=== PATIENT | female | born 2000 | race Caucasian/White ===

== ENCOUNTER 2025-04-29 08:44 | Emergency (ER) | payer OTHER, SELFPAY ==
[2025-04-29 08:44] VITALS: BP 134/97; PULSE 116; RESP 20; TEMP 37.1; O2SAT 100
[2025-04-29 09:21] LABS: EDCOVIDSCREEN Negative (Negative); EDSTREPNEGPOS1 Negative (Negative)
--- NOTE | 2025-04-29 09:43 | ED_ITS ---
HPI - URI/Sore Throat General Chief Complaint: Upper Respiratory Infection Stated Complaint: Swollen Tonsil Time Seen by Provider: 04/29/25 09:30 Source: patient and RN notes reviewed Mode of arrival: ambulatory Limitations: no limitations History of Present Illness HPI Narrative: 25-year-old female presents to the [facility] complaining of sore throat and swollen tonsils for the last 3 weeks. Patient says her right tonsils are swollen than her left. Patient denies any difficulty swallowing, excessive drooling, locked jaw, difficulty breathing, fevers, body aches and chills, upper respiratory symptoms, cough, or any other symptoms. Patient was swab 3 weeks ago for strep, mono, viral illnesses and said they were negative it was treated with amoxicillin and got somewhat better. His other symptoms got somewhat better however they are getting worse now. Patient denies any significant past medical history. Related Data Allergies Allergy/AdvReac Type Severity Reaction Status Date / Time No Known Allergies Allergy Mild Unverified 11/04/24 08:31 Review of Systems Review of Systems: CONSTITUTIONAL: Denies fever, chills, or sweats. EYES: Denies visual changes, redness, or discharge. ENT: Denies rhinorrhea, congestion, excessive drooling, trismus, dysphagia or otalgia. Positive for sore throat. CARDIOVASCULAR: Denies chest pain, palpitations, or edema. RESPIRATORY: Denies cough or dyspnea. GASTROINTESTINAL: Denies abdominal pain, nausea, vomiting, or diarrhea. GENITOURINARY: Denies dysuria or hematuria. SKIN: Denies rash or itching. MUSCULOSKELETAL: Denies back pain, joint pain, or myalgia. NEUROLOGIC: Denies headache, numbness, or weakness. PSYCHIATRIC: Denies anxiety or depression. All other systems reviewed are negative, except as documented in HPI. [facility] Family History Family History Mother Thyroid disorder Social History Social History Smoking status: Never smoker Alcohol intake: current Drinks per week: 4 Alcohol use details: 1-4 per week Substance use: never Do You Feel Safe in your Home?: Yes Lack of Transportation: No Lack of Food: Never True Current Housing: I Have Housing Concerned About Future Housing: No Difficulty Paying Gas/Electric Bills: No Difficulty Paying for Meds: No Currently Unemployed: No Education: Bachelor's Degree Difficulty w/ Childcare or Family Care: No Living arrangements: with roommate(s) Occupation/Education: student 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 There is no relevant family history pertinent to the patient complaint. Exam Narrative: GENERAL: This is a well-nourished, well-developed adult, in no apparent distress. They are non ill-appearing, nontoxic appearing. HEAD: normocephalic, atraumatic. EYES: Sclera clear/white. Conjunctiva normal. Vision is grossly intact. Extraocular movements intact EARS: External ears normal, auditory canals clear and without drainage, TMs normal without perforation. Hearing grossly intact. NOSE: External nose normal with no obvious nasal discharge, nasal turbinates without redness, no rhinorrhea. THROAT: Mucous membranes moist, posterior pharynx clear, without erythema or swelling. Tonsils erythematous 3+, right tonsil with exudate. Uvula midline. NECK: Neck supple, mild cervical lymphadenopathy, masses or thyromegaly. CARDIOVASCULAR: Regular rate and rhythm without murmurs, gallops, or rubs. RESPIRATORY: Clear to auscultation. Breath sounds equal bilaterally. No wheezes, rales, or rhonchi. SKIN: warm, Dry, intact with no suspicious lesions or rash, good texture and turgor. NEURO: awake, alert, and oriented to person, place and time. There were no obvious focal neurologic abnormalities. EXTREMITIES: No joint tenderness, effusion, or edema noted. BACK: Nontender without deformity. No CVA tenderness. Course Course Emergency Course: Portions of this record may have been created with voice recognition software Level of Care: Express Care Visit Vital Signs Vital signs: Vital Signs Temperature 98.7 F 04/29/25 08:44 Pulse Rate 116 H 04/29/25 08:44 Respiratory Rate 20 04/29/25 08:44 Blood Pressure 134/97 H 04/29/25 08:44 Pulse Oximetry 100 04/29/25 08:44 Oxygen Delivery Room Air 04/29/25 08:44 Temperature 98.7 F 08/05/25 08:44 Pulse Rate 116 H 04/29/25 08:44 Respiratory Rate 20 04/29/25 08:44 Blood Pressure 134/97 H 04/29/25 08:44 Pulse Oximetry 100 04/29/25 08:44 Oxygen Delivery Room Air 04/29/25 08:44 Reviewed MDM - URI/Sore Throat MDM Narrative Medical decision making narrative: Rapid strep negative, negative COVID in flu. Throat culture pending. Given patient's persistent symptoms will go ahead and treat her with Augmentin for 14 days along with short course of prednisone help with swelling. No evidence of peritonsillar abscess. Discussed physical exam findings. Advised supportive measures and signs/symptoms to go to the ER. Pt is appropriate for outpt treatment and f/u. Differential Diagnosis Differential diagnosis: Likely upper respiratory infection, pharyngitis and other (Tonsillitis, peritonsillar abscess, tonsillar cellulitis) Lab Data Attestation: I reviewed the patient's lab results. Labs: Lab Results 04/29/25 Range/Units 09:19 POC SARS CoV-2 Ag Negative (Negative) POC Grp A Strep Screen Negative (Negative) Critical Care Time Critical Care Time Critical Care Time: No Discharge Plan Discharge Clinical Impression: Acute tonsillitis Qualifiers: Pharyngitis/tonsillitis etiology: unspecified etiology Qualified Code(s): J03.90 - Acute tonsillitis, unspecified Patient Disposition: Home Condition: Stable Instructions: Antibiotic Form, Tonsillitis (ED) Additional Instructions: Your COVID, flu, strep are negative today. A throat culture will be sent off and if his positive for strep you will be contacted. Take the Augmentin as directed. Take the prednisone as directed, take in the morning, take with food. Follow-up with PCP in 3-5 days. You may take Tylenol or ibuprofen as needed for pain or fevers. Follow the instructions on the bottle. He developed difficulty swallowing, locked jaw, excessive drooling, your uvula is not midline, worsening says this, a serious concerns please go to the ER immediately. Patient Language: Belarusian Prescriptions: New prednisone 20 mg tablet 40 mg PO DAILY 5 Days Qty: 10 0RF amoxicillin-pot clavulanate 875-125 mg tablet 1 tablet PO Q12H 14 Days Qty: 28 0RF No Action Slynd 4 mg (28) tablet 4 mg PO DAILY Qty: 84 2RF Follow-up/Referrals: Flavio Sharpe MD [Primary Care Provider] - Time of Disposition: 09:41
== END 2025-04-29 09:53 | disposition home or self-care (01) ==
PROVIDERS: PCP Family Medicine Adolescent Medicine
DX: J03.90 Acute tonsillitis, unspecified (principal); Z20.822 Contact with and (suspected) exposure to COVID-19
CPT/HCPCS: 87081; 87426; 87880; 99213; G0463